=== PATIENT | female | born 1950 | race Caucasian/White ===

== ENCOUNTER → 2019-10-21 10:04 | Outpatient (CLI) | payer MEDICARE, OTHER, SELFPAY ==
[2019-10-23 10:43] LABS: COVID19 Sendout Not Detected (Not Detect)
== END ==
PROVIDERS: PCP Family Medicine; Visit Provider Nurse Practitioner
DX: Z11.59 Encounter for screening for other viral diseases (principal)
CPT/HCPCS: 87635

== ENCOUNTER 2019-10-24 10:52 | Day surgery (SDC) | payer MEDICARE, OTHER, SELFPAY ==
[2019-10-24] MEDS: PROPARACAINE 0.5% OPHTH SOL 2 DROPS EYE-OP (11:40)
[2019-10-24] MEDS: CATARACT EYE COMPOUND (10 DROPS/SYRINGE) 3 DROPS EYE-OP (11:41)
[2019-10-24 11:42] VITALS: BP 158/78; PULSE 65; RESP 16; TEMP 36.1; O2SAT 99; BMI 31.2
--- NOTE | 2019-10-24 13:01 | PM.PREOP ---
Pre-operative Note Interval Note History & Physical reviewed/Exam performed by Physician: Yes Changes to H&P: No
--- NOTE | 2019-10-24 13:01 | PM.OP.1 ---
Operative Date/Time/Diagnoses Pre-op diagnosis: Nuclear cataract right eye Procedure & Clinicians Procedure: Cataract Surgery Same procedure as scheduled: Yes Surgeon: Merrill Serrano Anesthesia Type: MAC +/- and Sedation Operative Notes Procedure in detail: Patient brought to the operating suite. Tetracaine drops placed in the right eye. Markng instrument was used to mandy the vertical and horizontal meridians. Patient was prepped and draped in sterile manner. Wire lid speculum was placed in the eye. Marking instrument was used to mandy 135 degree meridian. Betadine drops were placed on the eye. This was irrigated. Lidocaine jelly was placed on the eye. A paracentesis port was created with a side-port blade. 0.1 mL 1% preservative free lidocaine was injected into the anterior chamber. The anterior chamber was deepened with viscoelastic. 2.6 mm keratome was used to create a temporal clear corneal incision. Cystotome and Utrata forceps were used to create continuous tear capsulorrhexis. Balanced salt solution was used to hydro dissect the nucleus. The phacoemulsification handpiece was inserted and the nucleus was removed using the stop and chop technique. The irrigation aspiration handpiece was inserted and the remaining cortex was removed. Anterior chamber was deepened with viscoelastic. An Mccormick [id number] intraocular lens with a power of 10.5 was injected into the capsular bag. Irrigation aspiration handpiece was inserted and the remaining viscoelastic was removed. The lens was rotated to the 135 degree meridian. Incision was hydrated with balanced salt solution and found to be leak free with pressure with Weck-Rosemary sponges. 0.1 mL Vigamox injected anterior chamber. 0.3 mL Kenalog 10 mg was injected subconjunctivally. Lid speculum was removed. The patient left the operating room in excellent condition. Complications: none Post-operative Condition: stable Disposition: same day surgery
[2019-10-24] MEDS: LIDOCAINE JELLY 2% 5 ML 1 APPLIC TOP (13:29)
[2019-10-24] MEDS: CHONDROIDTIN/SOD HYALURONATE 1.05 ML SYRINGE INTRAOCULA (13:29)
[2019-10-24] MEDS: MOXIFLOXACIN INJ 5 MG/ML VIAL EYE-OP (13:30)
[2019-10-24] MEDS: PHENYLEPHRINE/LIDOCAINE VIAL (OR) 0.2 ML EYE-OP (13:30)
[2019-10-24] MEDS: TETRACAINE 0.5% OPHTH DROPS 4 ML 2 DROPS EYE-OP (13:30)
[2019-10-24] MEDS: TRIAMCINOLONE 50 MG/5 ML VIAL INJ (13:31)
[2019-10-24] MEDS: BALANCED SALT IRRIG SOLN NO.2 500 ML, EPINEPHrine 1 MG IRR (13:31)
[2019-10-24 13:43] VITALS: BP 158/66; PULSE 54; RESP 12; TEMP 36.1; O2SAT 98
== END 2019-10-24 14:10 | disposition home or self-care (01) ==
PROVIDERS: PCP Family Medicine; Referring Provider Family Medicine; Visit Provider Ophthalmology
PROC: (CPT 66984; principal; 2019-10-24 12:45)
DX: H25.11 Age-related nuclear cataract, right eye (principal); J45.909 Unspecified asthma, uncomplicated
CPT/HCPCS: 66984; J0171; J2250; J3301; V2787

== ENCOUNTER → 2019-11-04 09:38 | Outpatient (CLI) | payer MEDICARE, OTHER, SELFPAY ==
[2019-11-06 09:35] LABS: COVID19 Sendout Not Detected (Not Detect)
== END ==
PROVIDERS: PCP Family Medicine; Visit Provider Nurse Practitioner
DX: Z11.59 Encounter for screening for other viral diseases (principal)
CPT/HCPCS: 87635

== ENCOUNTER 2019-11-07 07:24 | Day surgery (SDC) | payer MEDICARE, OTHER, SELFPAY ==
[2019-11-07] MEDS: PROPARACAINE 0.5% OPHTH SOL 2 DROPS EYE-OP (08:05)
[2019-11-07 08:07] VITALS: BMI 31.2
[2019-11-07] MEDS: CATARACT EYE COMPOUND (10 DROPS/SYRINGE) 3 DROPS EYE-OP (08:21)
[2019-11-07 08:22] VITALS: BP 135/78; PULSE 60; RESP 16; TEMP 36.6; O2SAT 98
--- NOTE | 2019-11-07 09:12 | P.OP_ITS ---
Operative Date/Time/Diagnoses Pre-op diagnosis: Nuclear Cataract Left eye Post-op diagnosis: same Procedure & Clinicians Same procedure as scheduled: Yes Surgeon: Merrill Serrano Anesthesia Type: MAC +/- and Sedation Operative Notes Procedure in detail: Patient brought to the operating suite. Tetracaine drops placed in the left eye. Marking instrument was used to mandy the vertical and horizontal meridians. Patient was prepped and draped in sterile manner. Wire lid speculum was placed in the eye. Marking instrument was used to mandy the 85 degree meridian. Betadine drops were placed on the eye. This was irrigated. Lidocaine jelly was placed on the eye. A paracentesis port was created with a side-port blade. 0.1 mL 1% preservative free lidocaine was injected into the anterior chamber. The anterior chamber was deepened with viscoelastic. 2.6 mm keratome was used to create a temporal clear corneal incision. Cystotome and Utrata forceps were used to create continuous tear capsulorrhexis. Balanced salt solution was used to hydro dissect the nucleus. The phacoemulsification handpiece was inserted and the nucleus was removed using the stop and chop [place]. The irrigation aspiration handpiece was inserted and the remaining cortex was removed. Anterior chamber was deepened with viscoelastic. An Mccormick [id number] intraocular lens with a power of 12.0 was injected into the capsular bag. Irrigation aspiration handpiece was inserted and the remaining viscoelastic was removed. The lens was rotated to the 85 degree meridian. Incision was hydrated with balanced salt solution and found to be leak free with pressure with Weck- Rosemary sponges. 0.1 mL Vigamox injected anterior chamber. 0.3 mL Kenalog 10 mg was injected subconjunctivally. Lid speculum was removed. The patient left the operating room in excellent condition. Complications: none Post-operative Condition: stable Disposition: same day surgery
--- NOTE | 2019-11-07 09:12 | PM.PREOP ---
Pre-operative Note Interval Note History & Physical reviewed/Exam performed by Physician: Yes Changes to H&P: No
[2019-11-07] MEDS: PHENYLEPHRINE/LIDOCAINE VIAL (OR) 0.2 ML EYE-OP (09:30)
[2019-11-07] MEDS: CHONDROIDTIN/SOD HYALURONATE 1.05 ML SYRINGE INTRAOCULA (09:31)
[2019-11-07] MEDS: MOXIFLOXACIN INJ 5 MG/ML VIAL EYE-OP (09:31)
[2019-11-07] MEDS: TRIAMCINOLONE 50 MG/5 ML VIAL INJ (09:31)
[2019-11-07] MEDS: LIDOCAINE JELLY 2% 5 ML 1 APPLIC TOP (09:31)
[2019-11-07] MEDS: TETRACAINE 0.5% OPHTH DROPS 4 ML 2 DROPS EYE-OP (09:31)
[2019-11-07] MEDS: BALANCED SALT IRRIG SOLN NO.2 500 ML, EPINEPHrine 1 MG IRR (09:32)
[2019-11-07 09:58] VITALS: BP 137/64; PULSE 53; RESP 16; TEMP 36.2; O2SAT 100
== END 2019-11-07 10:03 | disposition home or self-care (01) ==
PROVIDERS: PCP Family Medicine; Referring Provider Family Medicine; Visit Provider Ophthalmology
PROC: (CPT 66984; principal; 2019-11-07 09:15)
DX: H25.12 Age-related nuclear cataract, left eye (principal); J45.909 Unspecified asthma, uncomplicated
CPT/HCPCS: 66984; J0171; J2250; J3301; V2787

== ENCOUNTER → 2022-07-15 07:42 | Outpatient (CLI) | payer MEDICARE, OTHER, SELFPAY ==
--- NOTE | 2022-07-16 01:00 | DI.NM.S_ITS ---
DATE OF SERVICE: 07/15/2022 PROCEDURE: Exercise treadmill stress testing without imaging. ORDERING PROVIDER: Benjamin Bartlett M.D. INDICATIONS: The patient is a 72-year-old female with exertional dyspnea. FINDINGS: 1. The patient was able to exercise for 4 minutes 19 seconds on a standard Keven protocol suggesting moderately reduced exercise capacity with an SAMUEL of +20%. 2. She had a fairly accelerated heart rate response to exercise with a resting heart rate of 92 BPM increasing to 135 BPM after 2 minutes of exercise and achieving a maximum heart rate of 150 BPM (102% of her predicted maximum). She had a borderline hypertensive blood pressure response with a resting blood pressure of 148/100, that increased to a maximum of 202/106. 3. She had no chest discomfort or anginal pain but had significant limiting exertional dyspnea. The resting O2 saturation was 94% but fell to 85% at peak exercise. 4. The resting ECG shows sinus rhythm with normal ST segments. While there is considerable motion artifact with exercise, there are no obvious significant ST-segment shifts, although there is very slight ST-segment sagging in recovery, that is nonspecific. There were occasional PACs at peak exercise but no complex ectopy. IMPRESSION: 1. Probable normal exercise treadmill stress test for ischemia although with mild, nonspecific ST-segment sagging. If there is a high degree of clinical concern for ischemic heart disease, consider a stress imaging study. 2. Moderately reduced exercise capacity without anginal discomfort but with limiting dyspnea and mild exertional hypoxemia with oxygen saturation down to 85% at peak exercise, suggesting probable intrinsic lung disease, but clinical correlation is recommended. 3. Rare PACs with exercise but no complex ectopy. Manuela Montiel - RS/toñito/kt doc#: [id number]/job#: [id number] dd: 07/15/2022 12:29:00 dt: 07/16/2022 00:54:00 DICTATING MD/COPIES TO: Garo Calabrese MD; Benjamin Bartlett M.D. COPIES MNE: CHERRY;
== END ==
PROVIDERS: PCP Family Medicine; Referring Provider Student in an Organized Health Care Education/Training Program; Visit Provider Student in an Organized Health Care Education/Training Program
DX: R06.09 Other forms of dyspnea (principal); I10 Essential (primary) hypertension
CPT/HCPCS: 93017